=== PATIENT | female | born 1965 | race American Indian/Alaskan Native ===

== ENCOUNTER 2016-12-25 00:59 | Emergency (ER) | payer BC ==
[2016-12-25] MEDS ORDERED: CATAPRES ONE (02:08)
[2016-12-25] MEDS ORDERED: CATAPRES PO ONE (02:13)
[2016-12-25 02:37] LABS: Basophils % (Auto) 0.7 % (0.0-1.8); Eosinophils % (Auto) 1.6 % (0.0-4.3); Hematocrit 38.5 % (30.3-42.9); Hemoglobin 12.7 gm/dl (10.1-14.3); Mean Corpuscular HGB Conc 33 % (30-34); Mean Corpuscular Hemoglobin 27 pg (28-32); Mean Corpuscular Volume 82 fl (79-97); Platelet Count 301 K/mm3 (140-440); Red Blood Count 4.69 M/mm3 (3.65-5.03); Red Cell Distribution Width 14.9 % (13.2-15.2); White Blood Count 4.3 K/mm3 (4.5-11.0)
[2016-12-25 02:54] LABS: Anion Gap 15 mmol/L; Blood Urea Nitrogen 10 mg/dL (7-17); Calcium 8.7 mg/dL (8.4-10.2); Carbon Dioxide 24 mmol/L (22-30); Chloride 103.2 mmol/L (98-107); Glucose 88 mg/dL (65-100); Potassium 3.5 mmol/L (3.6-5.0); Sodium 139 mmol/L (137-145)
[2016-12-25 09:16] VITALS: BP 157/87
--- NOTE | 2016-12-25 09:44 | Emergency Department Report ---
ED General Adult HPI - General Chief complaint: High BP Stated complaint: HIGH BP/HEADACHE Time Seen by Provider: 12/25/16 09:12 Source: patient Mode of arrival: Ambulatory Limitations: No Limitations - History of Present Illness Initial comments: 51-year-old female presents to the emergency department complaining of elevated blood pressure. Patient states she has not taken her blood pressure medicine and a couple of months because she is out of it. She states it is too expensive to go see her doctor. At approximately 11:30 last night, the patient began feeling dizzy and was complaining of headache all over her head. 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 Patient was instructed to come to the emergency department. On arrival in the emergency department, the patient was given oral clonidine. At this time, the patient is denying complaints. -: Sudden, Last night Location: head Radiation: non-radiation Severity scale (0 -10): 7 Quality: aching Consistency: now resolved Improves with: medication Worsens with: none Associated Symptoms: other (dizziness) Treatments Prior to Arrival: none - Related Data Previous Rx's Medication Instructions Recorded Last Taken Type Lisinopril [Zestril TAB] 20 mg PO QDAY #30 tablet 12/25/16 Unknown Rx Allergies Allergy/AdvReac Type Severity Reaction Status Date / Time Sulfa (Sulfonamide Allergy Swelling Verified 08/14/15 04:27 Antibiotics) ED Review of Systems ROS: Stated complaint: HIGH BP/HEADACHE Other details as noted in HPI Comment: All other systems reviewed and negative Neurological: headache, vertigo ED Past Medical Hx - Past Medical History Previous Medical History?: Yes Hx Hypertension: Yes - Surgical History Past Surgical History?: Yes Hx Breast Surgery: Yes (breast reduction) Additional Surgical History: x 2, fibroid embolization. - Family History Family history: no significant - Social History Smoking Status: Never Smoker Substance Use Type: None - Medications Home Medications: Home Medications Medication Instructions Recorded Confirmed Last Taken Type Lisinopril [Zestril TAB] 20 mg PO QDAY #30 tablet 12/25/16 Unknown Rx ED Physical Exam - General Limitations: No Limitations General appearance: alert, in no apparent distress - Head Head exam: Present: atraumatic, normocephalic - Eye Eye exam: Present: normal appearance, PERRL, EOMI - ENT ENT exam: Present: normal exam, normal orophraynx, mucous membranes moist - Neck Neck exam: Present: normal inspection, full ROM. Absent: tenderness - Respiratory Respiratory exam: Present: normal lung sounds bilaterally. Absent: respiratory distress - Cardiovascular Cardiovascular Exam: Present: regular rate, normal rhythm, normal heart sounds - GI/Abdominal GI/Abdominal exam: Present: soft, normal bowel sounds. Absent: distended, tenderness - Extremities Exam Extremities exam: Present: normal inspection, full ROM. Absent: tenderness - Back Exam Back exam: Present: normal inspection, full ROM. Absent: tenderness - Neurological Exam Neurological exam: Present: alert, oriented X3. Absent: motor sensory deficit - Skin Skin exam: Present: warm, dry, intact ED Course Vital Signs 12/25/16 12/25/16 12/25/16 01:58 02:18 04:26 Temperature 98.3 F 97.7 F Pulse Rate 87 87 85 Respiratory 20 18 Rate Blood Pressure 199/117 199/117 188/104 Blood Pressure [Left] O2 Sat by Pulse 98 100 Oximetry 12/25/16 12/25/16 12/25/16 06:26 07:04 07:05 Temperature 98.0 F Pulse Rate 78 80 84 Respiratory 18 13 11 L Rate Blood Pressure 132/72 Blood Pressure 149/92 [Left] O2 Sat by Pulse 100 100 100 Oximetry 12/25/16 12/25/16 12/25/16 07:06 07:08 07:10 Temperature Pulse Rate 72 71 72 Respiratory 14 14 14 Rate Blood Pressure 132/72 132/72 132/72 Blood Pressure [Left] O2 Sat by Pulse 99 98 98 Oximetry 12/25/16 12/25/16 12/25/16 07:12 07:14 07:16 Temperature Pulse Rate 74 69 71 Respiratory 15 14 13 Rate Blood Pressure 132/72 132/72 132/72 Blood Pressure [Left] O2 Sat by Pulse 100 100 99 Oximetry 12/25/16 12/25/16 12/25/16 07:17 07:18 07:19 Temperature Pulse Rate 71 73 71 Respiratory 13 13 13 Rate Blood Pressure Blood Pressure [Left] O2 Sat by Pulse 100 100 100 Oximetry 12/25/16 12/25/16 12/25/16 07:21 07:23 07:25 Temperature Pulse Rate 72 72 71 Respiratory 13 13 13 Rate Blood Pressure Blood Pressure [Left] O2 Sat by Pulse 99 99 100 Oximetry 12/25/16 12/25/16 12/25/16 07:27 07:29 07:30 Temperature Pulse Rate 74 71 71 Respiratory 14 14 13 Rate Blood Pressure 132/72 132/72 134/78 Blood Pressure [Left] O2 Sat by Pulse 100 100 100 Oximetry 12/25/16 12/25/16 12/25/16 07:45 08:00 08:15 Temperature Pulse Rate 72 71 68 Respiratory 13 13 14 Rate Blood Pressure 134/78 137/75 137/75 Blood Pressure [Left] O2 Sat by Pulse 100 99 100 Oximetry 12/25/16 12/25/16 08:31 08:45 Temperature Pulse Rate 80 75 Respiratory 22 17 Rate Blood Pressure 157/87 157/87 Blood Pressure [Left] O2 Sat by Pulse 100 98 Oximetry ED Medical Decision Making - Lab Data Result diagrams: 12/25/16 02:23 12/25/16 02:23 - EKG Data -: EKG Interpreted by [facility] EKG shows normal: sinus rhythm, axis, intervals, ST-T waves Rate: normal - EKG Data When compared to previous EKG there are: previous EKG unavailable Interpretation: LVH - Medical Decision Making Lab results reviewed and discussed with the patient. Patient has remained asymptomatic. Patient will be given a prescription for her lisinopril. Patient will be discharged home at this time to follow up with her primary care physician. - Differential Diagnosis hypertension, medication noncompliance Critical care attestation.: If time is entered above; I have spent that time in minutes in the direct care of this critically ill patient, excluding procedure time. ED Disposition Clinical Impression: Essential hypertension Disposition: DISCHARGED TO HOME OR SELFCARE Is pt being admited?: No Condition: Stable Instructions: Hypertension (ED) Prescriptions: Lisinopril [Zestril TAB] 20 mg PO QDAY #30 tablet Referrals: [facility] [Provider Group] - 3-5 Days Time of Disposition: 09:51
== END 2016-12-25 10:26 | disposition home or self-care (01) ==
LOC: ED 00:59
DX: I10 Essential (primary) hypertension (principal); Z88.2 Allergy status to sulfonamides
CPT/HCPCS: 36415; 80048; 84484; 85025; 93005; 93010; 99284

== ENCOUNTER 2021-02-16 09:59 | Emergency (ER) | payer BC ==
[2021-02-16] MEDS ORDERED: hydrALAZINE 25 MG TAB PO ONE (10:35)
--- NOTE | 2021-02-16 10:39 | Emergency Department Report ---
ED General Adult HPI - General Chief complaint: High BP Stated complaint: HBP Time Seen by Provider: 02/16/21 10:35 Source: patient Mode of arrival: Ambulatory Limitations: No Limitations - History of Present Illness Initial comments: 55-year-old -[place] female patient presents with complaints of elevated blood pressure today. Patient states she was being seen at the surgery center and was referred here due to her blood pressure being 196/1 100s. She does report a history of hypertension and states she has been off her medication for the past 6 months due to a lack of insurance. Patient states she now has insurance and does have a follow-up with her primary care doctor coming up soon. She denies any headache, vision changes, dizziness, difficulty with speech/ambulation, numbness/tingling/weakness in her limbs, chest pain, or shortness of breath. Patient states she was previously on lisinopril, however that medication was not controlling her blood pressure. She states she has not tried amlodipine in the past. No other past medical history per patient. - Related Data Previous Rx's Medication Instructions Recorded Last Taken Type amLODIPine 10 mg PO DAILY 20 Days #20 tab 02/16/21 Unknown Rx Allergies Allergy/AdvReac Type Severity Reaction Status Date / Time Sulfa (Sulfonamide Allergy Swelling Verified 08/14/15 04:27 Antibiotics) ED Review of Systems ROS: Stated complaint: HBP Other details as noted in HPI Constitutional: denies: chills, fever, malaise Respiratory: denies: cough, shortness of breath Cardiovascular: denies: chest pain Gastrointestinal: denies: abdominal pain Neurological: denies: headache, weakness, numbness, paresthesias, abnormal gait ED Past Medical Hx - Past Medical History Previous Medical History?: Yes Hx Hypertension: Yes (TOOK SELF OFF MEDS 6 MONTHS AGO) - Surgical History Past Surgical History?: Yes Hx Breast Surgery: Yes (BREAST REDUCTION) Additional Surgical History: x 2, fibroid embolization. - Social History Smoking Status: Never Smoker - Medications Home Medications: Home Medications Medication Instructions Recorded Confirmed Last Taken Type amLODIPine 10 mg PO DAILY 20 Days #20 tab 02/16/21 Unknown Rx ED Physical Exam - General Limitations: No Limitations General appearance: alert, in no apparent distress - Head Head exam: Present: atraumatic, normocephalic - Eye Eye exam: Present: PERRL. Absent: scleral icterus - Respiratory Respiratory exam: Present: normal lung sounds bilaterally. Absent: respiratory distress - Cardiovascular Cardiovascular Exam: Present: regular rate, normal rhythm. Absent: systolic murmur, diastolic murmur, rubs, gallop - Neurological Exam Neurological exam: Present: alert, oriented X3, CN II-XII intact, normal gait. Absent: motor sensory deficit - Expanded Neurological Exam Expanded Cerebellar function: Romberg: Normal Motor strength exam: RUE: 5, LUE: 5, RLE: 5, LLE: 5 - Psychiatric Psychiatric exam: Present: normal affect, normal mood - Skin Skin exam: Present: warm, dry, intact, normal color. Absent: rash ED Course Vital Signs 02/16/21 02/16/21 02/16/21 10:33 10:39 11:34 Temperature 98.2 F Pulse Rate 85 Respiratory 16 Rate Blood Pressure 187/103 Blood Pressure 225/112 [Right] O2 Sat by Pulse 98 Oximetry 02/16/21 12:22 Temperature Pulse Rate Respiratory Rate Blood Pressure Blood Pressure 167/83 [Right] O2 Sat by Pulse Oximetry ED Medical Decision Making - Medical Decision Making 55-year-old -[place] female patient presents with complaints of elevated blood pressure today. Patient states she was being seen at the surgery center and was referred here due to her blood pressure being 196/1 100s. She does report a history of hypertension and states she has been off her medication for the past 6 months due to a lack of insurance. Patient states she now has insurance and does have a follow-up with her primary care doctor coming up soon. She denies any headache, vision changes, dizziness, difficulty with speech/ambulation, numbness/tingling/weakness in her limbs, chest pain, or shortness of breath. Patient states she was previously on lisinopril, however that medication was not controlling her blood pressure. She states she has not tried amlodipine in the past. No other past medical history per patient. Initial BP noted to be 225/112. Patient given 50 mg of p.o. hydralazine. Blood pressure now 167/83. She continues to deny any symptoms. No dizziness or headache per patient post medication. Will discharge home with amlodipine. Recommend follow-up with PCP within 2 days. Discussed signs and symptoms that should prompt immediate return to the emergency department in detail with patient verbalized understanding. Critical care attestation.: If time is entered above; I have spent that time in minutes in the direct care of this critically ill patient, excluding procedure time. ED Disposition Clinical Impression: Hypertension Qualifiers: Hypertension type: essential hypertension Qualified Code(s): I10 - Essential (primary) hypertension Disposition: - TO HOME OR SELFCARE Is pt being admited?: No Condition: Stable Instructions: Hypertension (ED), Managing Your Hypertension, Hypertension, Adult Prescriptions: amLODIPine 10 mg PO DAILY 20 Days #20 tab Referrals: PRIMARY CARE, [Primary Care Provider] - 3-5 Days
[2021-02-16 12:22] VITALS: BP 167/83
== END 2021-02-16 12:42 | disposition home or self-care (01) ==
LOC: ED 09:59
DX: I10 Essential (primary) hypertension (principal); Z98.890 Other specified postprocedural states; Z79.899 Other long term (current) drug therapy; Z88.2 Allergy status to sulfonamides
CPT/HCPCS: 99282

== ENCOUNTER 2021-04-11 10:18 | Day surgery (SDC) | payer BC ==
[~2021-04-11 10:18] MED LIST: ACETAMINOPHEN 500 MG TAB PO SCH; BUPIVACAINE/PF (0.5%) 5 MG/1 ML 30 ML VIAL INFILTRATI ONE; LACTATED RINGERS 1,000 ML IV SCH; LIDOCAINE (1%) 10 MG/1 ML VIAL 20 ML MDV ONE; MIDAZOLAM 2 MG/2 ML INJ IV NR; ceFAZolin/STERILE WATER 2 GM/20 ML SYRINGE IV NR
--- NOTE | 2021-04-11 10:58 | Anesthesia Consultation ---
Anesthesia Consult and Med Hx Date of service: 04/11/21 - Airway Anesthetic Teeth Evaluation: Poor (states multiple teeth are "bad," denies loose teeth ) ROM Head & Neck: Adequate Mental/Hyoid Distance: Adequate Mallampati Class: Class II Intubation Access Assessment: Probably Good - Pre-Operative Health Status ASA Pre-Surgery Classification: ASA3 Proposed Anesthetic Plan: MAC - Pulmonary Hx Smoking: No Hx Respiratory Symptoms: No Hx Sleep Apnea: No (RAJEEV PRE SCREEN HIGH RISK) - Cardiovascular System Hx Hypertension: Yes (took amlodipine this morning) Hx Heart Attack/AMI: No Hx Percutaneous Transluminal Coronary Angioplasty (PTCA): No Hx Cardia Arrhythmia: No - Central Nervous System CVA: No - Endocrine Hx Renal Disease: No Hx Liver Disease: No Hx Insulin Dependent Diabetes: No Hx Non-Insulin Dependent Diabetes: No Hx Thyroid Disease: No - Other Systems Hx Obesity: Yes (BMI 41) - Additional Comments Anesthesia Medical History Comments: Hx awareness under anesthesia during c- section under GA. No other anesthetic complications. PCP and cardiac preop eval completed.
--- NOTE | 2021-04-11 10:59 | Anesthesia Day of Surgery ---
Anesthesia Day of Surgery - Day of Surgery Patient Examined: Yes Patient H&P Reviewed: Yes Patient is NPO: Yes
[2021-04-11] MEDS ORDERED: HYDROcodone/ACETAMINOPHEN 5-325 MG TAB PO PRN (11:00)
[2021-04-11] MEDS ORDERED: ONDANSETRON 4 MG/2 ML INJ IV PRN (11:00)
[2021-04-11] MEDS ORDERED: LIDOCAINE PF 100 MG/5 ML (CARDIAC SYRINGE) IV ONE (11:06)
[2021-04-11] MEDS ORDERED: dexAMETHasone 20 MG/5 ML VIAL ONE (11:06)
[2021-04-11] MEDS ORDERED: fentaNYL 100 MCG/2 ML INJ ONE (11:06)
[2021-04-11] MEDS ORDERED: ROCURONIUM 50 MG/5 ML INJ IV ONE (11:06)
[2021-04-11] MEDS ORDERED: propofoL 200 MG/20 ML VIAL IV ONE (11:07)
[2021-04-11] MEDS ORDERED: BUPIVACAINE/PF (0.25%) 2.5 MG/ML 30 ML VIAL INFILTRATI ONE ×2 (11:11→11:51)
[2021-04-11] MEDS ORDERED: ePHEDrine SULFATE 50 MG/1 ML INJ ONE (11:47)
[2021-04-11] MEDS ORDERED: LIDOCAINE (1%) 10 MG/1 ML VIAL 20 ML MDV INFILTRATI ONE (11:51)
[2021-04-11] MEDS ORDERED: SODIUM CHLORIDE 0.9% IRR 1,500 ML BOTTLE IR ONE (11:51)
[2021-04-11] MEDS ORDERED: SUGAMMADEX SODIUM 200 MG/2 ML VIAL IV ONE (11:56)
--- NOTE | 2021-04-11 12:17 | Short Stay Summary ---
Short Stay Documentation Date of service: 04/11/21 - History Principal diagnosis: soft tissue mass forehead H&P: obtained from office - Allergies and Medications Current Medications: Allergies Sulfa (Sulfonamide Antibiotics) Allergy (Verified 08/14/15 04:27) Swelling Home Medications Medication Instructions Recorded Confirmed Last Taken Type amLODIPine 10 mg PO DAILY 20 Days #20 tab 02/16/21 04/11/21 04/11/21 08:00 Rx Vitamin D (Nf) 1 tab PO DAILY 04/06/21 04/11/21 04/10/21 History Active Medications Acetaminophen (Acetaminophen 500 Mg Tab) 1,000 mg PO PREOP JOANA Stop: 04/11/21 23:59 Last Admin: 04/11/21 10:55 Dose: 1,000 mg Documented by: Hydrocodone Bitart/Acetaminophen (Hydrocodone/Acetaminophen 5-325 Mg Tab) 2 each PO ONCE PRN PRN Reason: Pain, Moderate (4-6) Stop: 04/11/21 18:00 Cefazolin Sodium (Cefazolin/Sterile Water 2 Gm/20 Ml Syringe) 2 gm IV PREOP NR Stop: 04/11/21 20:00 Fentanyl (Fentanyl 100 Mcg/2 Ml Inj) 50 mcg IV Q5MIN PRN PRN Reason: Pain , Severe (7-10) Stop: 04/11/21 18:00 Lactated Ringer's (Lactated Ringers) 1,000 mls @ 100 mls/hr IV DIRECT JOANA Stop: 04/11/21 23:59 Last Admin: 04/11/21 11:05 Dose: 100 mls/hr Documented by: Midazolam HCl (Midazolam 2 Mg/2 Ml Inj) 2 mg IV PREOP NR Stop: 04/11/21 23:59 Last Admin: 04/11/21 11:06 Dose: 2 mg Documented by: Ondansetron HCl (Ondansetron 4 Mg/2 Ml Inj) 4 mg IV ONCE PRN PRN Reason: Nausea And Vomiting Stop: 04/11/21 17:00 - Brief post op/procedure progress note Date of procedure: 04/11/21 Pre-op diagnosis: soft tissue mass forehead Post-op diagnosis: same Procedure: excision soft tissue mass forehead Anesthesia: GETA, local Findings: 4cm lipoma Surgeon: RONALDO ANGEL Vice President Medical Affairs: DESTINEY SMITH Estimated blood loss: minimal Pathology: list (soft tissue mass forehead) Specimen disposition: to lab Condition: stable - Hospital course Hospital course: Pt observed in PACU and discharged to home in stable condition - Disposition Condition at discharge: Good Disposition: DC-01 TO HOME OR SELFCARE Short Stay Discharge Plan Activity: no restrictions Diet: regular Wound: open to air, per your surgeon's advice (remove outer dressing in 2 days. May shower tomorrow, pat incision dry, do not scrub off the glue) Follow up with: YOUSIF AUGUSTIN MD [Primary Care Provider] - 7 Days RONALDO ANGEL DO [Staff Physician] - 14 Days Prescriptions: traMADoL [Ultram 50 MG tab] 50 mg PO Q6HR PRN #10 tablet PRN Reason: Pain , Severe (7-10)
[2021-04-11] MEDS: fentaNYL 100 MCG/2 ML INJ IV PRN ×2 (12:39→12:49)
--- NOTE | 2021-04-11 12:49 | Operative Report ---
Operative Report Operative Report: Date of procedure: 04/11/21 Pre-op diagnosis: soft tissue mass forehead Post-op diagnosis: same Procedure: excision soft tissue mass forehead Anesthesia: GETA, local Findings: 4cm lipoma Surgeon: RONALDO ANGEL Pressurizer: DESTINEY SMITH Estimated blood loss: minimal Pathology: list (soft tissue mass forehead) Specimen disposition: to lab Condition: stable Hospital course: Pt observed in PACU and discharged to home in stable condition HPI and Indication: Patient is a 55-year-old female who presented to the office for a workup of a soft tissue mass of the forehead which had been present for many years and grown in size. She underwent medical w/u by her PCP and cardiology and was cleared for surgery. The patient was set up for an elective excision. After all risks were discussed and questions answered, consent was signed in the office. Procedure in detail: Patient was identified in the preoperative area and the operative site marked. The patient was taken back to the operating room, placed on the operating room table in supine position. After anesthesia was induced, the forehead was prepped and draped in usual sterile fashion and a timeout was performed. Local anesthetic was injected into the skin at the intended incision site. A transverse incision was made along langers lines at the center of the mass using a 15 blade. Dissection was carried down through the skin using electrocautery. The mass was encountered. Using a combination of blunt dissection with a hemostat and electrocautery, the mass was carefully dissected away from the surrounding tissue circumferentially. Once normal fatty tissue was identified the mass was dissected from the scalp using electrocautery. This was removed from the wound and measured at 4cm. This was then passed off the table as a specimen. The wound was then irrigated and hemostasis achieved with electrocautery. Once hemostasis was ensured, the deep dermal layer was closed using interrupted 3-0 Vicryl sutures. The skin was closed with 4-0 Monocryl subcuticular running stitch and skin glue. After the skin wound was dry, a 4x4 gauze and tegaderm was applied for a compression dressing. At the end of the case, all sponge, instrument, sharp counts were correct 2. The patient was awoken from anesthesia and taken to PACU in stable condition.
[2021-04-11 13:51] VITALS: BP 137/75
--- NOTE | 2021-04-11 14:25 | Post Anesthesia Evaluation ---
- Post Anesthesia Evaluation Patient Participated: Yes Airway Patent: Yes Stable Respiratory Function: Yes Nausea/Vomiting: No Temp > 96.8F: Yes Pain Manageable: Yes Adequeate Hydration: Yes Anesthesia Complications: No
== END 2021-04-11 13:45 | disposition home or self-care (01) ==
LOC: OR 10:18
PROVIDERS: ATTEND Surgery
DX: R22.0 Localized swelling, mass and lump, head (principal); D17.0 Benign lipomatous neoplasm of skin and subcutaneous tissue of head, face and neck; M79.89 Other specified soft tissue disorders; Z20.822 Contact with and (suspected) exposure to COVID-19; E78.00 Pure hypercholesterolemia, unspecified; I10 Essential (primary) hypertension; E66.9 Obesity, unspecified; F32.9 Major depressive disorder, single episode, unspecified; Z88.2 Allergy status to sulfonamides; Z79.899 Other long term (current) drug therapy; Z98.891 History of uterine scar from previous surgery; Z98.890 Other specified postprocedural states; Z68.41 Body mass index [BMI] 40.0-44.9, adult
CPT/HCPCS: 21012; 88304; J0690; J1100; J2001; J2250; J2405; J2704; J3010; J7120; U0003; 88307